=== PATIENT | female | born 1965 | race Caucasian/White ===

== ENCOUNTER 2017-03-10 10:54 | Emergency (ER) | payer OTHER ==
[~2017-03-10] VITALS: Ht 167.6 cm; Wt 61.5 kg
[~2017-03-10 10:54] MED LIST: OMEP20CA16 PO; RIZA5TAB30 PO
[2017-03-10 11:13] VITALS: Ht 167.6 cm; Wt 61.5 kg
--- NOTE | 2017-03-10 14:09 | RADRPT ---
PROCEDURE: US Lower extremity Venous. CLINICAL INDICATION: Pain and swelling TECHNIQUE: Multiple sonographic images of the bilateral lower extremity deep venous system was obt ained utilizing grayscale, color-flow, compressive sonography and doppler imaging with augmentation. The images were reviewed on a PACS workstation. COMPARISON: None. FINDINGS: There is normal compressibility and flow within the bilateral common femoral, deep femoral, superfic ial femoral and popliteal veins. Normal respiratory variation and augmentation is seen. There is normal color flow and compressibility of bilateral posterior tibial and peroneal veins Evaluation is superficial venous system demonstrates a compressible but dilated right greater saphen ous vein. There are varicose veins arising from the dilated greater saphenous vein. The left great er saphenous vein demonstrates normal color flow and compressibility. IMPRESSION: 1. No evidence of bilateral lower extremity DVT. 2. Dilated right greater saphenous vein with varicose veins arising from this. This is likely joo festation of venous insufficiency/reflux disease. recommend a dedicated study to evaluate for reflu x disease 3. No evidence of superficial venous thrombosis in either extremity RPTAT: .Saurabh Narvaez MD, Date Time Electronically viewed and signed by .Saurabh Narvaez MD, on 03/10/2017 14:08 .W/
--- NOTE | 2017-03-10 14:26 | ERD ---
ER Documentation Chief Complaint Date/Time DATE: 03/10/17 TIME: 14:24 Chief Complaint BILATERAL LEG PAIN, SENT BY PCP , R/O DVT HPI Patient is a 51-year-old female who presents with bilateral leg pain secondary to varicose veins. She has had these for over 2 months and she was sent here by her primary care doctor to get bilateral venous duplex ultrasound to rule out DVT. She denies any chest pain or shortness of breath. Denies cough. Denies any recent travel. She is ambulatory. Denies any trauma. ROS All systems reviewed and are negative except as per history of present illness. Medications Home Meds Reported Medications Rizatriptan Benzoate (Maxalt) 5 Mg Tablet, 5 MG PO Q8 Y for MIGRAINE, TAB may repeat after 2 hours, MAX 30 mg/24 hour 08/27/15 Omeprazole* (Omeprazole*) 20 Mg Capsule.dr, 20 MG PO DAILY 03/11/12 Allergies Allergies: Coded Allergies: No Known Drug Allergies (Verified Allergy, Mild, 08/27/15) PMhx/Soc Medical and Surgical Hx: pt denies Medical Hx, pt denies Surgical Hx History of Surgery: Yes (TONSILLECTOMY,APPENDECTOMY,HYSTERECTOMY) Anesthesia Reaction: Yes (ITCHING) Hx Neurological Disorder: No Hx Respiratory Disorders: No Hx Cardiac Disorders: No Hx Psychiatric Problems: No Hx Miscellaneous Medical Probl: Yes (RT SHOULDER MASS) Hx Alcohol Use: No Hx Substance Use: No Hx Tobacco Use: No FmHx Family History: No diabetes Physical Exam Vitals Vital Signs Date Time Temp Pulse Resp B/P Pulse Ox O2 Delivery O2 Flow Rate FiO2 03/10/17 11:13 98.4 76 20 131/80 98 Physical Exam General: well developed, well nourished, alert, nontoxic, no distress Head: normocephalic, atraumatic Neck: Supple, nontender, no lymphadenopathy, no midline tenderness Respiratory: Clear to auscaultation bilaterally, speaks in full sentences, no use of accesory muscles or labored breathing, no rales, ronchi, or wheezing Cardiovascular: RRR, No murmurs Back: no midline tenderness, no step offs or bony abnormalities, sensation to light touch in tact Extremities: Bilateral lower extremity varicose veins worse on the right side, no erythema, no induration tenderness behind the calf. Procedures/MDM Patient sent here to rule out DVT in her bilateral lower extremities. She is well-appearing in no distress. She does have varicose veins however ultrasound of the bilateral lower extremities were negative. She was given copies of the reports she can follow up with primary care. Recommended this patient follow up with her primary care doctor within 48 hours or return to the emergency room for any worsening of symptoms. However this time I do believe there is suitable for outpatient management. I answered all their questions and they agreed with the plan and were discharged home. Departure Diagnosis: Primary Impression: Varicose veins of both lower extremities Condition: Stable Patient Instructions: Varicose Veins Additional Instructions: Llame al doctor MAANA y santos amador CHECO PARA DENTRO DE 1-2 NEFF.Dgale a la secretaria que nosotros le instruimos hacer esta checo.Avise o llame si corona condicin se empeora antes de la checo. Regresa aqui si peor o no mejor. IVONNE MANDUJANO PA-C Mar 10, 2017 14:26
== END 2017-03-10 14:22 | disposition home or self-care (01) ==
LOC: FTE 10:54
DX: I83.813 Varicose veins of bilateral lower extremities with pain (principal); M79.604 Pain in right leg
CPT/HCPCS: 93970; Z7502

== ENCOUNTER 2017-06-26 13:19 | Emergency (ER) | payer OTHER ==
[~2017-06-26] VITALS: Ht 157.5 cm; Wt 61.5 kg
[2017-06-26 13:23] VITALS: Ht 157.5 cm; Wt 61.5 kg
[2017-06-26] MEDS ORDERED: KETOROLAC 30 MG INJ IM STA (14:20)
[2017-06-26] MEDS ORDERED: IBUP-1542 PO (14:24)
--- NOTE | 2017-06-26 14:33 | ERD ---
ER Documentation Chief Complaint Date/Time DATE: 06/26/17 TIME: 14:25 Chief Complaint Complains of Multiple complaints including ear, back and neck HPI Patient is a 51-year-old female with past medical history of hyperlipidemia who presents to the emergency department with multiple concerns including back pain , neck pain, right arm pain 2 weeks. Patient states "I have too much tension in my nerves". Patient states she seen her primary care physician for her pain numerous times. Patient has been taking naproxen and gabapentin. Patient states the gabapentin makes her too sleepy that she is not taking this medication. Patient states that her primary care physician told her to come to the emergency department if her pain became worse. Patient denies any falls or trauma. 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 Patient denies any fever, chills, nausea, vomiting, chest pain, shortness of breath, left upper extremity pain, diaphoresis or LOC. Patient denies any saddle anesthesia, urinary cons, stool incontinence, night pain or trauma. Patient requesting MRI at this time. ROS All systems reviewed and are negative except as per history of present illness. Medications Home Meds Active Scripts Ibuprofen* (Motrin*) 600 Mg Tab, 600 MG PO Q6, #15 TAB Prov:ANJELICA ROJAS PA-C 06/26/17 Reported Medications Rizatriptan Benzoate (Maxalt) 5 Mg Tablet, 5 MG PO Q8 Y for MIGRAINE, TAB may repeat after 2 hours, MAX 30 mg/24 hour 08/27/15 Omeprazole* (Omeprazole*) 20 Mg Capsule.dr, 20 MG PO DAILY 03/11/12 Allergies Allergies: Coded Allergies: No Known Drug Allergies (Verified Allergy, Mild, 08/27/15) PMhx/Soc History of Surgery: Yes (TONSILLECTOMY,APPENDECTOMY,HYSTERECTOMY) Anesthesia Reaction: Yes (ITCHING) Hx Neurological Disorder: No Hx Respiratory Disorders: No Hx Cardiac Disorders: No Hx Psychiatric Problems: No Hx Miscellaneous Medical Probl: Yes (RT SHOULDER MASS) Hx Alcohol Use: No Hx Substance Use: No Hx Tobacco Use: No Physical Exam Vitals Vital Signs Date Time Temp Pulse Resp B/P Pulse Ox O2 Delivery O2 Flow Rate FiO2 06/26/17 13:23 98.5 70 20 125/81 98 Physical Exam GENERAL: Well-developed, well-nourished female. Appears in no acute distress. Taking in full sentences HEAD: Normocephalic, atraumatic. EYES: Pupils are equally reactive bilaterally. EOMs grossly intact. No conjunctival erythema. ENT: Moist mucous membranes. No uvula deviation. No kissing tonsils. NECK: Supple. No meningismus. Normal range of motion of the neck. Tender to palpation of bilateral trapezius muscles. LUNG: Clear to auscultation bilaterally. No rhonchi, wheezing, rales or coarse breath sounds. CHEST: Tender to palpation of the right chest wall. Pain is reproducible. BACK: No midline tenderness. Tender to palpation of bilateral paraspinal lumbar muscles. EXTREMITIES: Equal pulses bilaterally. No peripheral clubbing, cyanosis or edema. No unilateral leg swelling. NEUROLOGIC: Alert and oriented. Moving all four extremities without any difficulty. Normal speech. Steady gait. RIGHT ARM: No deformity, erythema, ecchymosis or swelling. Skin intact. No bursal swelling. Full ROM of the shoulder, elbow and wrist. Patient able to pronate and supinate without any difficulty. Tender to palpation of the mid humerus. Sensation intact to light touch. Neurovascularly intact. (Able to give thumbs up, make an ok sign, cross digits 2 and 3, thumb to pinky opposition. 2+ RP.) No snuffbox tenderness. Results 24 hrs Current Medications Medications (Trade) Dose Ordered Sig/Reba Route PRN Reason Start Time Stop Time Status Last Admin Dose Admin Ketorolac Tromethamine (Toradol) 30 mg ONCE STAT IM 06/26/17 14:20 06/26/17 14:22 DC Procedures/MDM ED COURSE: The patient was stable throughout ED course. I kept the patient and/or family informed of laboratory and diagnostic imaging results throughout the ED course. MEDICATIONS GIVEN: Toradol Patient tolerated medication well with no adverse reactions. Patient reported improvement in pain. MEDICAL DECISION MAKING: This is a 51-year-old female who presents with numerous complaints including neck pain, back pain, right arm pain 2 weeks. Patient seen her primary care physician and given prescriptions for naproxen as well as gabapentin. She denies taking these medications because she states it makes her sleepy. Vital signs were reviewed. Patient was afebrile. Patient denied any saddle anesthesia , urinary incontinence, bowel incontinence, night pain or recent trauma. Patient had normal range of motion of her right arm. Patient is requesting MRI. I explained to the patient at length that there is no emergent indication for an MRI at this time. Patient stated "I do not know why they put me on this side" and "on the other side they do MRIs". I again explained to the patient that based on her chief complaint, there is no indication for an emergent MRI. I did offer the patient x-ray imaging however she declined stating that she has had x-rays in the past. At this time, patient's presentation is most consistent with neck pain, back pain and right arm pain. Low suspicion for fracture dislocation injury. Low suspicion for ACS, cauda equina syndrome, spinal fractures, epidural abscess, spinal metastasis, pyelonephritis, nephrolithiasis. Patient will be provided with referral information for pain management. Patient was advised to follow-up with her primary care physician for an MRI and an outpatient basis. Also encouraged to continue take gabapentin 1 at rest given that it does make her sleepy. PRESCRIPTIONS: Ibuprofen DISCHARGE: At this time, patient is stable for discharge and outpatient management. RICE therapy and ROM exercises were advised to avoid stiffness. I have instructed the patient to follow-up with his/her primary care physician in 1-2 days. I have discussed with the patient the possibility of needing to see an orthopedic nurse for further workup and imaging if the pain persists. I have instructed the patient to promptly return to the ER for any new or worsening symptoms including increased pain, swelling, warmth, urinary incontinence, stool incontinence, weakness or numbness. The patient and/or family expressed understanding of and agreement with this plan. All questions were answered. Home care instructions were provided. Disclaimer: Inadvertent spelling and grammatical errors are likely due to EHR/ dictation software use and do not reflect on the overall quality of patient care. Also, please note that the electronic time recorded on this note does not necessarily reflect the actual time of the patient encounter. Departure Diagnosis: Primary Impression: Back pain Back pain location: low back pain Chronicity: unspecified Back pain laterality: unspecified Sciatica presence: unspecified whether sciatica present Qualified Code: M54.5 - Low back pain, unspecified back pain laterality, unspecified chronicity, with sciatica presence unspecified Additional Impressions: Right arm pain Neck pain Condition: Stable Patient Instructions: Back Pain (Acute Or Chronic), Neck Pain, No Trauma Referrals: NIK,DAVID RIBEIRO MD, Jr., АЛЕКСАНДР LUNA MD, NATACHA Additional Instructions: Call your primary care doctor TOMORROW for an appointment during the next 1-2 days.See the doctor sooner or return here if your condition worsens before your appointment time. Follow-up with your primary care physician for an MRI on an outpatient basis. There is no indication for an emergent MRI at this time. ANJELICA ROJAS PA-C Jun 26, 2017 14:33
== END 2017-06-26 15:04 | disposition home or self-care (01) ==
LOC: FTE 13:19
DX: M54.5 Low back pain (principal); M79.601 Pain in right arm
CPT/HCPCS: 96372; J1885; Z7502

== ENCOUNTER 2018-02-26 12:57 | Day surgery (SDC) | END 2018-02-26 17:21 | disposition home or self-care (01) ==

== ENCOUNTER 2018-07-13 18:09 | Emergency (ER) | END 2018-07-13 21:02 | disposition home or self-care (01) ==

== ENCOUNTER 2018-07-16 18:27 | Emergency (ER) | END 2018-07-16 23:20 | disposition home or self-care (01) ==

== ENCOUNTER 2019-07-03 22:44 | Emergency (ER) | payer OTHER ==
[~2019-07-03] VITALS: Ht 154.9 cm; Wt 60.6 kg
[~2019-07-03 22:44] MED LIST changes: +CLARITIN; +FAMO-96 PO; +HYDR-4011 PO; +IBUP-1542 PO; +IMITREX; +ONDA4TAB14 PO; +ONDA8TAB14 PO; +PROPRANOLOL; -RIZA5TAB30 PO; +TRAM50TA2 PO
[2019-07-03 22:47] VITALS: Ht 154.9 cm; Wt 60.6 kg
[2019-07-04 03:28] VITALS: BP 113/71; PULSE 80; RESP 16
== END 2019-07-04 03:42 | disposition home or self-care (01) ==
LOC: E/R 22:44
DX: R10.13 Epigastric pain (principal)
CPT/HCPCS: 36415; 74176; 80053; 81001; 83690; 84484; 85025; 93005; 96374; 96375; J2270; J2405; Z7502; Z7610